=== PATIENT | female | born 1935 | race Caucasian/White ===

== ENCOUNTER 2018-11-12 20:46 | Emergency (ER) | payer BC ==
[2018-11-12 21:06] VITALS: TEMP 99; O2SAT 96
[2018-11-12 21:53] VITALS: BP 167/87; PULSE 87; RESP 16
== END 2018-11-12 21:50 | disposition home or self-care (01) | DRG 74 ==
LOC: ED 20:46
DX: B02.23 Postherpetic polyneuropathy (principal)
CPT/HCPCS: 99282

== ENCOUNTER 2018-11-13 15:25 | Emergency (ER) | payer BC ==
[2018-11-13 15:44] VITALS: TEMP 98.4
[2018-11-13] MEDS ORDERED: CYCLOBENZAPRINE 10 MG TAB PO ONE (16:10)
[2018-11-13] MEDS ORDERED: CYCLOBENZAPRINE 10 MG TAB ONE (16:18)
[2018-11-13 16:49] VITALS: BP 168/88; PULSE 76; RESP 16; O2SAT 98
== END 2018-11-13 16:35 | disposition home or self-care (01) | DRG 552 ==
LOC: ED 15:25
DX: M62.830 Muscle spasm of back (principal)
CPT/HCPCS: 99282; A9270-GY

== ENCOUNTER 2018-11-21 14:49 | Emergency (ER) | payer BC ==
[2018-11-21 15:38] VITALS: BP 147/77; PULSE 89; RESP 20; TEMP 98.2; O2SAT 97
== END 2018-11-21 16:23 | disposition home or self-care (01) | DRG 556 ==
LOC: ED 14:49
DX: M62.838 Other muscle spasm (principal); M48.00 Spinal stenosis, site unspecified
CPT/HCPCS: 72148; 99282; 99283